=== PATIENT | female | born 1985 | race Caucasian/White ===

== ENCOUNTER 2016-05-27 08:10 | Emergency (ER) | payer OTHER ==
[2016-05-27 08:16] VITALS: BP 111/73; PULSE 74; TEMP 98.3; BMI 32.9
--- NOTE | 2016-05-27 08:54 | PDOC ---
Post Exposure HPI - General Chief Complaint: Blood/Body Fluid Exposure SJR Stated Complaint: STUCK BY NEEDLE (EMPLOYEE) Time Seen by Provider: 05/27/16 08:51 History Source: Patient Exam Limitations: No Limitations - History of Present Illness Initial Comments: 05/27/16 13:50 30 yr female with accidental needlestick at work this AM. 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 Pt immediatley washed the wound with soap and water. Pt is UTD with tetanus no medical history or allergies. Past History - Past Medical History Allergies/Adverse Reactions: Allergies No Known Allergies Allergy (Verified 05/27/16 08:13) Home Medications: Ambulatory Orders NK [No Known Home Medication] 05/15/15 General: Yes: no pertinent history - Family History Significant Family History: Yes: no pertinent family hx - Immunization History Immunizations Up to Date: Yes - Social History Smoking Status: Never smoked General Medical PMHX - Other General PMHX Angina: No Review of Systems - Review of Systems Able to Perform ROS?: Yes Is the patient limited Ghanaian proficient: No Constitutional: No: Symptoms Reported HEENTM: No: Symptoms Reported Respiratory: No: Symptoms reported, Other Cardiac (ROS): No: Symptoms Reported ABD/GI: No: Symptoms Reported Integumentary: Yes: Symptoms Reported, See HPI *Physical Exam - Vital Signs Last Vital Signs Temp Pulse Resp BP Pulse Ox 98.3 F 74 18 111/73 100 05/27/16 08:13 05/27/16 08:13 05/27/16 08:13 05/27/16 08:13 05/27/16 08:13 - Physical Exam General Appearance: Yes: Nourished, Appropriately Dressed HEENT: positive: EOMI, EMMA Extremity: positive: Normal Capillary Refill, Normal Inspection, Normal Range of Motion, Other (right palm with pinpoint red leroy between 3rd and 4th digits at base of fingers, no bleeding ) Post Exposure - ED Protocol - Exposure Treatment Washing/Decontamination: Soap/Water Source Patient HIV Status:: Unknown (pt to be tested , pt is an inpatient in this hospital) Prophylaxis given?: No Baseline bloods drawn prophylaxis:(use *Exposure-Hosp Emp): Yes Medical Decision Making - Medical Decision Making 05/27/16 13:57 cc: accidental needlestick will go now to [facility] to facilitate testing the source who is an admitted pt. labs drawn, wound was cleaned CROCHETER HAND no sign of bleeding or open area. 05/27/16 15:29 Jen in Employee health will follow up with getting the source tested and then discuss if PEP is needed. Pt has decided to hold off on PEP at this time. *DC/Admit/Observation/Transfer Diagnosis at time of Disposition: Needle stick injury Qualifiers: Encounter type: initial encounter Qualified Code(s): W27.3XXA - Contact with needle (sewing), initial encounter - Discharge Dispostion Disposition: HOME Condition at time of disposition: Fair - Referrals - Patient Instructions Printed Discharge Instructions: How to Handle Body Fluid Exposure -- Healthcare Worker Additional Instructions: please go to [facility] now for further care regarding blood tests done today and follow up of the source patient - Post Discharge Activity Work/School Note: Back to Work
[2016-05-27 09:08] LABS: BASOPHIL 0.9 % (0-2.0); EOSINOPHIL 2.1 % (0-4.5); MCH 29.2 pg (25.7-33.7); MCHC 33.8 g/dl (32.0-36.0); MEAN CELL VOLUME 86.6 fl (80-96); MEAN PLT VOLUME 7.9 fl (7.5-11.1); NEUTROPHILS 63.5 % (42.8-82.8); PLATELET COUNT 257 K/MM3 (134-434); RDW 13.2 % (11.6-15.6); WHITE BLOOD COUNT 8.5 K/mm3 (4.0-10.0)
[2016-05-27 10:45] LABS: ALBUMIN 4.3 g/dl (3.4-5.0); ANION GAP 10 (8-16); CALCIUM 9.2 mg/dL (8.5-10.1); CHOLESTEROL 159 mg/dL (50-200); CO2 25 mmol/L (21-32); CREATININE 0.6 mg/dL (0.55-1.02); GLUCOSE,RANDOM 90 mg/dL (74-106); LDH 186 U/L (84-246); PHOSPHOROUS 3.5 mg/dL (2.5-4.9); SGOT/AST 17 U/L (15-37); SGPT/ALT 26 U/L (12-78); TOT PROT 7.3 g/dl (6.4-8.2); URIC ACID 3.9 mg/dL (2.6-7.2)
[2016-05-27 10:46] LABS: ALK PHOS 93 U/L (45-117); BILIRUBIN,TOTAL 0.4 mg/dL (0.2-1.0)
[2016-05-27 12:06] LABS: HIV 1 & 2 AB NEGATIVE; HIV 1 AGp24 NEGATIVE
[2016-05-28 06:06] LABS: HEP B SURFACE AB Reactive (.)
== END 2016-05-27 09:15 | disposition home or self-care (01) ==
LOC: JERFT 08:10
DX: S61.431A Puncture wound without foreign body of right hand, initial encounter (principal); W46.1XXA Contact with contaminated hypodermic needle, initial encounter; Y93.F9 Activity, other caregiving; Y92.238 Other place in hospital as the place of occurrence of the external cause; Y99.0 Civilian activity done for income or pay
CPT/HCPCS: 36415; 80053; 82465; 82977; 83615; 84100; 84478; 84550; 85025; 86704; 86706; 87340; 87389; 99281-25